=== PATIENT | male | born 1990 | race Hispanic/Latino ===

== ENCOUNTER 2018-10-30 06:37 | Emergency (ER) | payer OTHER ==
[2018-10-30] MEDS ORDERED: NEOMY SULF/BACITRA/POLYMYXIN B 1 EACH PACKET TP ONE (07:10)
== END 2018-10-30 07:35 | disposition home or self-care (01) ==
LOC: EDH 06:37
DX: S60.511A Abrasion of right hand, initial encounter (principal); W50.4XXA Accidental scratch by another person, initial encounter; Y93.89 Activity, other specified; Y92.238 Other place in hospital as the place of occurrence of the external cause; Y99.8 Other external cause status

== ENCOUNTER → 2020-09-08 | Outpatient (CLI) | payer OTHER ==
[2020-09-08 08:09] LABS: BASOPHILS % (AUTO) 0.6 % (0.0-5.0); EOSINOPHILS % (AUTO) 2.9 % (0.0-8.0); HEMATOCRIT 45.6 % (42-54); MEAN CORPUSCULAR HEMOGLOBIN 30.3 pg (27.0-33.0); MEAN CORPUSCULAR VOLUME 89.2 fL (79-99); MONOCYTES % (AUTO) 9.7 % (3.0-13.0); NEUTROPHILS % (AUTO) 57.4 % (40.0-77.0); PLATELET COUNT (AUTO) 379 K/uL (130-400); RED BLOOD CELL COUNT(AUTO) 5.11 MIL/uL (4.50-6.20); WHITE BLOOD COUNT (AUTO) 10.2 K/uL (4.8-10.8)
[2020-09-08 08:36] LABS: ALBUMIN 4.2 g/dL (3.5-5.0); BILIRUBIN,TOTAL 0.3 mg/dL (0.2-1.0); CREATININE 1.1 mg/dL (0.5-1.5); T4 (THYROXINE) 6.8 ug/dL (4.7-13.3); THYROID STIMULATING HORMONE 4.09 uIU/mL (0.36-3.74); TOTAL PROTEIN, SERUM 8.1 g/dL (6.0-8.3)
== END | disposition home or self-care (01) ==
LOC: LAB 07:41
PROVIDERS: ATTEND Family Medicine
DX: E03.9 Hypothyroidism, unspecified (principal)
CPT/HCPCS: 36415; 80053; 80061; 82306; 84436; 84443; 84479; 85025; 86140

== ENCOUNTER → 2022-07-01 | Outpatient (CLI) | payer OTHER | END | disposition home or self-care (01) | LOC: ICE 09:34 | PROVIDERS: ATTEND Hospitalist | DX: U07.1 COVID-19 (principal) | CPT/HCPCS: 87426 ==